=== PATIENT | male | born 2000 | race Hispanic/Latino ===

== ENCOUNTER 2025-03-23 12:26 | Emergency (ER) | payer OTHER, SELFPAY ==
[2025-03-23] MEDS ORDERED: Cyclobenzaprine 10 MG TAB ONE (12:46)
[2025-03-23] MEDS ORDERED: Ibuprofen 800 MG TAB ONE (12:46)
[2025-03-23] MEDS ORDERED: Ondansetron PF 4 MG/2 ML Vial ONE (13:23)
== END 2025-03-23 13:54 | disposition short-term general hospital (02) ==
LOC: BURERS 12:26
DX: J93.83 Other pneumothorax (principal)
CPT/HCPCS: 71045; 93005; 96374; 96375